=== PATIENT | male | born 1990 | race Two or more races ===

== ENCOUNTER 2021-10-21 21:16 | Emergency (ER) | payer OTHER ==
[~2021-10-21] VITALS: Ht 180.3 cm; Wt 77.1 kg
--- NOTE | 2021-10-21 22:15 | NUR ---
BIBS C/O MID STERNUM "SHARP" PAIN AT 8PM RADIATING TO RIGHT SIDE OF FACE RATES PAIN 2/10 AT TRIAGE. PATIENT IN BED 12 ON MONITOR AND POX AWAITING MD KWAN.
--- NOTE | 2021-10-21 22:22 | NUR ---
EMT AT BEDSIDE FOR EKG
--- NOTE | 2021-10-21 22:30 | NUR ---
RAC #18G S/L BLOOD COLLECTED AND SENT TO LAB
--- NOTE | 2021-10-21 22:33 | NUR ---
KNITTING MACHINE MECHANIC AT PT'S BEDSIDE
--- NOTE | 2021-10-21 22:35 | NUR ---
PT DENIES PAIN AT THIS TIME. PT KEPT COMFORTABLE
[2021-10-21 22:41] LABS: BASOPHILS % (AUTO) 0.7 % (0.0-2.0); EOSINOPHILS % (AUTO) 2.4 % (0.0-6.0); HEMATOCRIT 48 % (39-51); HEMOGLOBIN 16.9 g/dL (13.5-17.5); LYMPHOCYTES # (AUTO) 2.4 K/uL (0.8-4.8); MEAN CORPUSCULAR HGB CONC 35 g/dl (31.0-36.0); MEAN CORPUSCULAR VOLUME 95 fL (80-96); MONOCYTES # (AUTO) 0.7 K/uL (0.1-1.30); MONOCYTES % (AUTO) 10.4 % (2.0-12.0); NEUTROPHILS # (AUTO) 3.5 K/uL (1.8-8.9); NEUTROPHILS % (AUTO) 51.5 % (43.0-81.0); PLATELET COUNT (AUTO) 182 K/uL (150-450); RED BLOOD CELL COUNT(AUTO) 5.12 MIL/uL (4.5-6.0); WHITE BLOOD COUNT (AUTO) 6.7 K/uL (4.3-11.0)
[2021-10-21 22:59] LABS: ALANINE AMINOTRANSFERASE 54 U/L (12-78); ALBUMIN 4.3 g/dL (3.4-5.0); ALKALINE PHOSPHATASE 65 U/L (46-116); ASPARTATE AMINOTRANSFERASE 26 U/L (15-37); BILIRUBIN,DIRECT 0.2 mg/dL (0.0-0.2); BILIRUBIN,TOTAL 0.9 mg/dL (0.2-1.0); CALCIUM, SERUM 8.8 mg/dL (8.5-10.1); CARBON DIOXIDE 28 mmol/L (21-32); CREATININE 1.1 mg/dL (0.6-1.3); GLUCOSE 105 mg/dL (74-106); TOTAL PROTEIN, SERUM 8.1 g/dL (6.4-8.2); UREA NITROGEN, BLOOD 15 mg/dL (7-18)
[2021-10-21 23:29] LABS: CHLORIDE 102 mmol/L (98-107); POTASSIUM 3.8 mmol/L (3.5-5.1); SODIUM SERUM 138 mmol/L (136-145)
--- NOTE | 2021-10-22 00:23 | NUR ---
PATTERNMAKER GRADER AT PT'S BEDSIDE
[2021-10-22 01:13] VITALS: BP 114/82
--- NOTE | 2021-10-22 01:13 | NUR ---
Patient discharged to home in stable condition. Written and verbal after care instructions given. Patient verbalizes understanding of instruction. IV removed. Catheter intact and site benign. Pressure and 4x4 applied to site. No bleeding noted. pt ambulatory with a steady gait
== END 2021-10-22 01:13 | disposition home or self-care (01) ==
LOC: ER 21:30
DX: R07.89 Other chest pain (principal); Z60.2 Problems related to living alone
CPT/HCPCS: 36415; 71045-TC; 80048-TC; 80076-TC; 84484-TC; 85025-TC; 85730-TC

== ENCOUNTER 2022-06-18 00:21 | Emergency (ER) | payer OTHER ==
[~2022-06-18] VITALS: Ht 180.3 cm; Wt 77.1 kg
[2022-06-18 02:07] VITALS: BP 129/84
--- NOTE | 2022-06-18 02:07 | NUR ---
BIBSELF FROM HOME C/O L PINKY PAIN S/P CATCHING BALL YESTERDAY. PT A/OX4. TOLERATING R/A WELL WITH NO RESP DISTRESS. SAFETY MEASURES IN PLACE.
--- NOTE | 2022-06-18 02:14 | NUR ---
METAL SOLDERER AT PT'S BEDSIDE
[2022-06-18] MEDS ORDERED: IBUPROFEN 600 MG TABLET ONE (02:21)
[2022-06-18] MEDS ORDERED: HYDROCODONE/APAP 5/325MG TABLET PO ONE (02:30)
[2022-06-18] MEDS ORDERED: IBUPROFEN 600 MG TABLET PO ONE (02:30)
[2022-06-18] MEDS ORDERED: HYDROCODONE/APAP 5/325MG TABLET ONE (02:32)
[2022-06-18] MEDS ORDERED: HYDR-3972 PO (02:47)
--- NOTE | 2022-06-18 02:54 | NUR ---
Patient discharged to home in stable condition. Written and verbal after care instructions given. Patient verbalizes understanding of instruction.
== END 2022-06-18 02:54 | disposition home or self-care (01) ==
LOC: ER 00:22
DX: S62.327A Displaced fracture of shaft of fifth metacarpal bone, left hand, initial encounter for closed fracture (principal); Z60.2 Problems related to living alone; W21.00XA Struck by hit or thrown ball, unspecified type, initial encounter; Y93.89 Activity, other specified; Y92.89 Other specified places as the place of occurrence of the external cause; Y99.8 Other external cause status
CPT/HCPCS: 73140-TC